=== PATIENT | female | born 1970 | race Caucasian/White ===

== ENCOUNTER 2024-11-27 14:25 | Outpatient (CLI) | payer BC | END 2024-11-27 14:26 | disposition home or self-care (01) | LOC: CSHMAMMO 14:25 | PROVIDERS: ATTEND Registered Nurse | DX: Z12.31 Encounter for screening mammogram for malignant neoplasm of breast (principal) | CPT/HCPCS: 77063; 77067 ==

== ENCOUNTER 2024-11-27 15:06 | Outpatient (CLI) | payer BC | END 2024-11-27 15:07 | disposition home or self-care (01) | LOC: CSHCT 15:06 | PROVIDERS: ATTEND Registered Nurse | DX: Z12.2 Encounter for screening for malignant neoplasm of respiratory organs (principal); F17.218 Nicotine dependence, cigarettes, with other nicotine-induced disorders; J44.9 Chronic obstructive pulmonary disease, unspecified | CPT/HCPCS: 71271 ==